=== PATIENT | female | born 1960 | race Caucasian/White ===

== ENCOUNTER 2018-07-19 07:11 | Day surgery (SDC) | payer BC, MEDICAID ==
[~2018-07-19] VITALS: Ht 162.6 cm; Wt 77.8 kg
[2018-07-19 07:40] VITALS: Ht 162.6 cm; Wt 77.8 kg
[2018-07-19] MEDS ORDERED: METFORMIN (07:49)
[2018-07-19] MEDS ORDERED: LEVOTHYROXINE (07:49)
[2018-07-19 09:08] VITALS: BP 138/63; PULSE 63; RESP 18
[2018-07-19] MEDS ORDERED: MIDAZOLAM 1 MG/ML 2 ML INJ ONE ×3 (09:49→09:50)
[2018-07-19] MEDS ORDERED: FENTAnyl 50 MCG/ML VIAL ONE (09:50)
[2018-07-19 10:22] VITALS: BP 122/69; PULSE 89; RESP 14
== END 2018-07-19 15:41 | disposition home or self-care (01) ==
LOC: GIL 07:11
PROVIDERS: ATTEND Internal Medicine Gastroenterology
DX: Z12.11 Encounter for screening for malignant neoplasm of colon (principal); K64.8 Other hemorrhoids; K64.4 Residual hemorrhoidal skin tags; E11.9 Type 2 diabetes mellitus without complications
CPT/HCPCS: 45378; 82962; J2250; J3010